=== PATIENT | male | born 1965 | race Caucasian/White ===

== ENCOUNTER 2022-06-03 09:53 | Observation (INO) | payer BC, SELFPAY ==
[~2022-06-03 09:53] MED LIST: ISOVUE-370 76%-LOCM 1 ML ONE
[2022-06-03 10:24] LABS: #Basophils 0.1 thou/uL (0.0-0.2); #Eosinphils 0.1 thou/uL (0.0-0.7); #Lymphocytes 1.8 thou/uL (1.20-3.40); #Monocytes 0.5 thou/uL (0.11-0.59); #Neutrophils 4.9 thou/uL (1.40-6.50); %Basophils 1.2 % (0.0-1.0); %Eosinophils 1.8 % (0.0-10.0); %Monocytes 6.7 % (0.0-10.0); %Neutrophils 66.5 % (42.0-75.0); Mean Corpuscular HGB CONC 33.7 g/dL (32.0-36.0); Mean Corpuscular Hemoglobin 32.1 pg (27.0-31.0); Mean Corpuscular Volume 95.5 fL (78.0-98.0); Platelet Count 275 thou/uL (130-400); Red Blood Cell (RBC) Count 4.66 mill/uL (4.70-6.10); White Blood Cell (WBC) Count 7.4 thou/uL (4.8-10.8)
[2022-06-03 10:39] LABS: INR-International Normal Ratio 0.9; Prothrombin Time 11.9 sec (12.0-14.7)
[2022-06-03 10:40] LABS: PTT 25.3 sec (22.9-36.1)
[2022-06-03 10:49] LABS: ALT (SGPT) 44 U/L (8-55); AST (SGOT) 59 U/L (5-34); Alkaline Phosphatase 51 U/L (40-110); Anion Gap 15 mmol/L (10-20); BUN (Urea Nitrogen) 18 mg/dL (8.4-25.7); Bilirubin, Total 1.2 mg/dL (0.2-1.2); Calc. Creatinine Clearance 0 mL/min (70-130); Calcium 11.3 mg/dL (7.8-10.44); Carbon Dioxide 25 mmol/L (22-29); Chloride 101 mmol/L (98-107); Estimated GFR 52; Globulin 2.7 g/dL (2.4-3.5); Glucose 111 mg/dL (70-105); Potassium 4.3 mmol/L (3.5-5.1); Protein, Total 7.7 g/dL (6.0-8.3); Sodium 137 mmol/L (136-145)
[2022-06-03] MEDS ORDERED: Aspirin Chewable 81 MG TAB ONE (11:30)
[2022-06-03] MEDS ORDERED: Acetaminophen 325 MG TAB PO PRN (13:20)
[2022-06-03] MEDS ORDERED: Ondansetron PF 4 MG/2 ML Vial IVP PRN (13:20)
[2022-06-03] MEDS ORDERED: Ondansetron ODT 4 MG TAB PO PRN (13:20)
[2022-06-03] MEDS ORDERED: hydrALAZINE 20 MG/ML VIAL SLOW IVP PRN (13:20)
[2022-06-03] MEDS: Sodium Chloride 0.9% 1,000 ML IV SCH ×2 (14:14→22:53)
[2022-06-03 20:08] VITALS: BMI 25.0
[2022-06-03] MEDS ORDERED: Atorvastatin Calcium 40 MG TAB PO SCH (21:00)
[2022-06-03] MEDS: Heparin 5,000 UNITS/ML VIAL SC SCH (21:15)
[2022-06-04 05:26] LABS: #Basophils 0.1 thou/uL (0.0-0.2); #Eosinphils 0.3 thou/uL (0.0-0.7); #Lymphocytes 1.5 thou/uL (1.20-3.40); #Monocytes 0.4 thou/uL (0.11-0.59); #Neutrophils 2.5 thou/uL (1.40-6.50); %Basophils 1.2 % (0.0-1.0); %Lymphocytes 32.8 % (21.0-51.0); %Monocytes 7.5 % (0.0-10.0); %Neutrophils 52.5 % (42.0-75.0); Mean Corpuscular HGB CONC 33.4 g/dL (32.0-36.0); Mean Corpuscular Hemoglobin 32.4 pg (27.0-31.0); Mean Corpuscular Volume 96.9 fL (78.0-98.0); Platelet Count 189 thou/uL (130-400); RBC Distribution Width 11.9 % (11.5-14.5); Red Blood Cell (RBC) Count 4.01 mill/uL (4.70-6.10); White Blood Cell (WBC) Count 4.7 thou/uL (4.8-10.8)
[2022-06-04 06:01] LABS: Anion Gap 11 mmol/L (10-20); BUN (Urea Nitrogen) 17 mg/dL (8.4-25.7); Calc. Creatinine Clearance 74 mL/min (70-130); Calcium 9.9 mg/dL (7.8-10.44); Carbon Dioxide 27 mmol/L (22-29); Cardiac Risk 2.4 (Less than 4.5); Chloride 105 mmol/L (98-107); Cholesterol 148 mg/dl (< 200 Desired); Estimated GFR 63; Glucose 100 mg/dL (70-105); HDL Cholesterol 62 mg/dL (>60 Neg Risk); LDL Cholesterol, Calculated 64 mg/dL; Sodium 139 mmol/L (136-145); Triglycerides 111 mg/dL (Less than 150)
[2022-06-04] MEDS: Heparin 5,000 UNITS/ML VIAL SC SCH (08:40)
[2022-06-04] MEDS: Sodium Chloride 0.9% 1,000 ML IV SCH (08:43)
[2022-06-04] MEDS ORDERED: Aspirin 81 mg Enteric Coated Tablet PO SCH (09:00)
[2022-06-04] MEDS ORDERED: lamoTRIgine 100 MG TAB PO SCH ×2 (14:15→21:00)
[2022-06-04] MEDS ORDERED: Chlorthalidone 25 MG TAB PO SCH (14:15)
[2022-06-04 16:19] VITALS: BP 147/88; TEMP 97.6
[2022-06-04] MEDS ORDERED: Atorvastatin Calcium 40 MG TAB PO SCH (21:00)
[2022-06-05] MEDS ORDERED: Chlorthalidone 25 MG TAB PO SCH (09:00)
[2022-06-05] MEDS ORDERED: Lisinopril 20 MG TAB PO SCH (09:00)
== END 2022-06-04 17:33 | disposition home or self-care (01) ==
LOC: EDBD 09:53 → ERS 09:53 → ERHOLD 12:16 → NEURO 18:36
PROVIDERS: ADMIT Family Medicine; ATTEND Family Medicine
DX: R20.2 Paresthesia of skin (principal); R51.9 Headache, unspecified; G40.909 Epilepsy, unspecified, not intractable, without status epilepticus; I13.10 Hypertensive heart and chronic kidney disease without heart failure, with stage 1 through stage 4 chronic kidney disease, or unspecified chronic kidney disease; N18.30 Chronic kidney disease, stage 3 unspecified; N17.9 Acute kidney failure, unspecified; E78.5 Hyperlipidemia, unspecified; F10.10 Alcohol abuse, uncomplicated; E83.52 Hypercalcemia; I08.1 Rheumatic disorders of both mitral and tricuspid valves; F17.290 Nicotine dependence, other tobacco product, uncomplicated; Z86.73 Personal history of transient ischemic attack (TIA), and cerebral infarction without residual deficits; Z79.899 Other long term (current) drug therapy; Z20.822 Contact with and (suspected) exposure to COVID-19
CPT/HCPCS: 36415; 70450; 70496; 70498; 70551; 71045; 80048; 80053; 80061; 84484; 85025; 85610; 85730; 93005; 93306; 95712; 95819; 95957; 96360; 96361; 96372; G0378; J1644; J7050; Q9966; U0003; U0005